=== PATIENT | male | born 1940 | race Caucasian/White ===

== ENCOUNTER 2019-03-22 09:24 | Inpatient (IN) ==
[2019-03-18 14:05] LABS: Prothrombin Time 12.8 sec (11.9-14.5)
[2019-03-18 14:09] LABS: Basophils # (Auto) 0 K/mcL (0.0-0.3); Basophils % (Auto) 0.4 % (0.0-2.0); Eosinophils # (Auto) 0.1 K/mcL (0.0-0.7); Eosinophils % (Auto) 1.1 % (0.0-7.0); Granulocytes % (Auto) 72.4 % (38.0-78.0); Hematocrit 44.8 % (41.0-55.0); Hemoglobin 15.1 g/dL (13.5-16.5); Mean Cell Volume 89.5 fL (80.0-100.0); Mean Corpuscular HGB Conc 33.8 g/dL (31.0-36.0); Mean Platelet Volume 7.5 fL (7.4-10.4); Monocytes # (Auto) 0.4 K/mcL (0.1-0.9); Monocytes % (Auto) 7.1 % (1.0-12.0); Platelet Count 222 K/mcL (140-440); RBC 5.01 M/mcL (4.50-5.90); Red Cell Distribution Width 13.3 % (11.5-14.5); WBC 5.5 K/mcL (4.5-11.0)
[2019-03-18 16:42] LABS: Blood Urea Nitrogen 24 mg/dl (8-23); Calcium 9.2 mg/dl (8.6-10.4); Carbon Dioxide 24 mmol/L (22-30); Chloride 103 mmol/L (96-108); Glomerular Filtration Rate 64; Glucose 92 mg/dL (70-105)
[~2019-03-22 09:24] MED LIST: 0.9 % SODIUM CHLORIDE 9 ML, KETOROLAC 30 MG, ROPIVACAINE HCL/PF 49.5 ML, EPINEPHrine 0.... IJ SCH; ACETAMINOPHEN 500 MG TABLET PO SCH; CELECOXIB 200 MG CAPSULE PO SCH; IPRATROPIUM/ALBUTEROL 3 ML AMPUL.NEB NEB PRN; PREGABALIN 75 MG CAPSULE PO SCH; SCOPOLAMINE 1 PATCH PATCH TOPICAL PRN; ceFAZolin 2 GM in DEXTROSE 5% IN WATER 50 ML IV SCH; oxyCODONE 10 MG TAB.ER.12H PO SCH
[2019-03-22 11:55] LABS: Appearance,Urine CLEAR; Bilirubin,Urine NEG (NEG); Color,Urine YELLOW; Glucose,Urine (UA) NEGATIVE (NEG); Ketones,Urine NEG (NEG); Leukocyte Esterase,Urine NEG /uL (NEG); Nitrate,Urine NEG (NEG); Protein,Urine NEG (NEG); Specific Gravity,Urine 1.018 (1.000-1.035); Urine Blood NEG mg/dL (<0.03); Urobilinogen,Urine NEG (NEG)
[2019-03-22] MEDS ORDERED: GLYCOPYRROLATE 0.2 MG/ML VIAL IV ONE (13:15)
[2019-03-22] MEDS ORDERED: fentaNYL 100 MCG/2 ML VIAL IV ONE (13:15)
[2019-03-22] MEDS ORDERED: ONDANSETRON 4 MG/2 ML VIAL IV ONE (13:15)
[2019-03-22] MEDS ORDERED: PROPOFOL 200 MG/20 ML VIAL IV ONE (13:15)
[2019-03-22] MEDS ORDERED: DEXAMETHASONE 10 MG/ML VIAL IV ONE (13:15)
[2019-03-22] MEDS ORDERED: TRANEXAMIC ACID 1,000 MG/10 ML VIAL IV ONE ×2 (13:15→14:51)
[2019-03-22] MEDS ORDERED: KETAMINE 100 MG/ML ML IV ONE (13:15)
[2019-03-22] MEDS ORDERED: ROPIVACAINE HCL/PF 20 ML VIAL IJ ONE (13:15)
[2019-03-22] MEDS ORDERED: LIDOCAINE HCL/PF 100 MG/5 ML SYRINGE IV ONE (13:15)
[2019-03-22] MEDS ORDERED: GENTAMICIN SULFATE 800 MG/20 ML VIAL IR ONE (13:46)
[2019-03-22] MEDS ORDERED: ePHEDrine 50 MG/ML AMPUL IV PRN (14:16)
[2019-03-22] MEDS ORDERED: METOPROLOL TARTRATE 5 MG/5 ML VIAL IV PRN (14:16)
[2019-03-22] MEDS ORDERED: METHOCARBAMOL 1,000 MG/10 ML VIAL IV PRN (14:16)
[2019-03-22] MEDS ORDERED: NALOXONE HCL 0.4 MG/ML VIAL IV PRN (14:16)
[2019-03-22] MEDS ORDERED: MEPERIDINE 25 MG/ML SYRINGE IV PRN (14:16)
[2019-03-22] MEDS ORDERED: IPRATROPIUM/ALBUTEROL 3 ML AMPUL.NEB NEB PRN (14:16)
[2019-03-22] MEDS ORDERED: ONDANSETRON 4 MG/2 ML VIAL IV PRN ×2 (14:16→14:51)
[2019-03-22] MEDS ORDERED: PROMETHAZINE 25 MG/ML VIAL IV PRN (14:16)
[2019-03-22] MEDS ORDERED: ATROPINE SULFATE 0.4 MG/ML VIAL IV PRN (14:16)
[2019-03-22] MEDS ORDERED: diphenhydrAMINE 50 MG/ML VIAL IV PRN (14:16)
[2019-03-22] MEDS ORDERED: FLUMAZENIL 0.1 MG/ML ML IV PRN (14:16)
[2019-03-22] MEDS ORDERED: fentaNYL 100 MCG/2 ML VIAL IV PRN (14:16)
[2019-03-22] MEDS ORDERED: HALOPERIDOL LACTATE 5 MG/ML VIAL IV ONE (14:21)
[2019-03-22] MEDS ORDERED: POLYETHYLENE GLYCOL 3350 17 GM PACKET PO PRN (14:51)
[2019-03-22] MEDS ORDERED: MAGNESIUM HYDROXIDE 30 ML ORAL.SUSP PO PRN (14:51)
[2019-03-22] MEDS ORDERED: BISACODYL 10 MG SUPP.RECT PR PRN (14:51)
[2019-03-22] MEDS ORDERED: BENZOCAINE/MENTHOL 1 LOZENGE PO PRN (14:51)
[2019-03-22] MEDS ORDERED: ACETAMINOPHEN 325 MG TABLET PO PRN (14:51)
[2019-03-22] MEDS ORDERED: TEMAZEPAM 15 MG CAPSULE PO PRN (14:51)
[2019-03-22] MEDS ORDERED: FLEETS ADULT ENEMA PR PRN (14:51)
[2019-03-22] MEDS ORDERED: HYDROmorphone 2 MG/ML VIAL IV PRN (14:51)
[2019-03-22] MEDS ORDERED: CYCLOBENZAPRINE 10 MG TABLET PO PRN (14:57)
[2019-03-22] MEDS ORDERED: HALOPERIDOL LACTATE 5 MG/ML VIAL ONE (14:57)
--- NOTE | 2019-03-22 14:58 | Brief Operative Note ---
Date of procedure: 03/22/19 Pre-op diagnosis: Right knee djd Post-op diagnosis: same Procedure: Right tka with ;jaydon Grafts/Implants: Yes Anesthesia: DARSHANA Surgeon: Beltran Caba Owner Manager: Deuce Fontanez Estimated blood loss (cc): 100 Tourniquet Time (Minutes): 45 Specimens Removed/Pathology: none sent Condition: stable Disposition: PACU
--- NOTE | 2019-03-22 15:27 | Operative Note ---
DATE OF OPERATION: 03/22/2019 PREOPERATIVE DIAGNOSIS: Right knee degenerative arthritis, severe. POSTOPERATIVE DIAGNOSIS: Right knee degenerative arthritis, severe. PROCEDURE: Right total knee arthroplasty using the Russ robot. SURGEON: Beltran Caba M.D. PRISON PSYCHIATRIST: Deuce Fontanez PA-C. The PA's assistance was required for the safe and efficient completion of the entire case. This provider's expertise and technical skill were required throughout the case. The PA assisted with preoperative coordination, intraoperative retraction, wound closure, dressing and splint application, as well as postoperative documentation and care coordination. ANESTHESIA: General LMA anesthesia. COMPLICATIONS: None. TOTAL TOURNIQUET TIME: 45 minutes at 250 pounds of pressure. ESTIMATED BLOOD LOSS: About 100 mL. IMPLANTS: Per nurse's note. These were cemented Josesito components, a 9 mm poly insert with deep dish with a 36 mm patellar button. DESCRIPTION OF PROCEDURE: The patient was brought to the operating room, placed supine on the operating table, and put to sleep with general LMA anesthesia. Once asleep, the patient had the right leg sterilely prepped and draped in the usual sterile fashion. Once this was done and time out performed by consent form, x-rays and initials, we proceeded with the case. We then placed Ioban over the skin after being sterilely prepped and draped. We made a midline incision and a midvastus approach after inflating the tourniquet to 250 pounds of pressure. We exposed the joint, showing severe arthritis of the right knee. We were able to place the pins above and below the knee and then register the center of hip rotation. We registered thirty points on the femur, thirty points on the tibia. Intraarticular points were registered, and we balanced the knee at 15 degrees and 90 degrees, both medial and lateral sides. Once perfectly balanced in both planes, we then brought in the robot and made the bony cuts. Once these were made, we removed osteophytes and bony fragments, removed the remnants of the meniscus, preserving the posterior cruciate ligament. Once done, we then trialed the components, setting rotation as preoperatively planned of the tibial baseplate. We trialed a 9 and 10 poly insert. The 10 mm gave a degree flexion contracture. With this, we went with a 9 mm that was 1 mm contracture, removing any additional spurs posteriorly. We irrigated thoroughly and then prepared the patella, measuring 25 mm in total thickness. This was cut to 15 mm in bony thickness and then resurfaced with a 36 mm patellar button. A small chamfer cut was made laterally and osteophytes were removed medially. We irrigated thoroughly and then opened the components, prepared the bony surface and injected the soft tissues with the post-inject formula. We pulse lavaged the tibia using the CarboJet as well to remove any moisture and then placed cement into the bone and on the implant. Tibial baseplate was set into place as preoperatively punched into place and aligned. This covered perfectly. We irrigated thoroughly and then placed the femoral component, preparing the bone with pulse lavage and CarboJet. Once completely dry, the bone cement was impregnated into the bone and the implant placed. We then placed a 9 mm trial and placed the knee in extension, prepared the patella and cemented into place a patellar poly component. We irrigated thoroughly. We kept the knee at 45 degrees until all cement was dry. At this point, we then placed the final implant as we liked the alignment and tension of the ligaments with a size 9, and this is what was preoperatively planned and measured. Once done, we were able to then implant a size 9 mm deep-dished implant tibial baseplate, removed any excess bone and then injected the soft tissues with a post-inject formula anteriorly. We closed the midvastus approach with #1 Stratafix x2 sutures. We closed the skin with Stratafix and adhesive closure. Sterile bandage was applied. Tourniquet deflated at approximately 45 minutes. Blood loss about 100 mL. RBDolores:[email or web address] Job ID: [id number] Doc ID: [id number] Beltran Caba MD
--- NOTE | 2019-03-22 15:42 | XRay Report ---
HISTORY: Postop right knee prosthesis insertion. FINDINGS: there is well-positioned right total knee prosthesis. No fracture is present. There is a joint effusion. There are no abnormal soft tissue calcifications around the joint. IMPRESSION: Well-positioned right knee prosthesis Interpreted and Authenticated by: Marcin Gurrola 03/22/19
[2019-03-22] MEDS: LACTATED RINGERS 1,000 ML IV SCH (15:53)
[2019-03-22] MEDS: KETOROLAC 15 MG/ML VIAL IV SCH ×2 (18:44→23:31)
[2019-03-22] MEDS: DOCUSATE SODIUM 100 MG CAPSULE PO SCH (20:12)
[2019-03-22] MEDS: ceFAZolin 1 GM VIAL IV SCH (20:12)
[2019-03-22] MEDS: TOPIRAMATE 25 MG TABLET PO SCH (20:12)
[2019-03-22] MEDS: 0.9 % SODIUM CHLORIDE 10 ML SYRINGE IV SCH (20:13)
[2019-03-22] MEDS: ASPIRIN 325 MG ENTERIC COATED TABLET PO SCH (20:13)
[2019-03-22] MEDS ORDERED: SENNOSIDES 1 TABLET PO SCH (21:00)
[2019-03-22] MEDS ORDERED: TERAZOSIN 1 MG CAPSULE PO SCH (21:00)
[2019-03-22] MEDS: HYDROcodone/APAP 10/325MG TABLET PO PRN (22:11)
[2019-03-23] MEDS: LACTATED RINGERS 1,000 ML IV SCH (00:56)
[2019-03-23] MEDS: 0.9 % SODIUM CHLORIDE 10 ML SYRINGE IV SCH (05:06)
[2019-03-23] MEDS: KETOROLAC 15 MG/ML VIAL IV SCH (05:06)
[2019-03-23] MEDS: ceFAZolin 1 GM VIAL IV SCH (05:07)
--- NOTE | 2019-03-23 07:56 | Orthopedic Progress Note ---
Subjective Patient information: Note initiated : 03/23/19 at 7:55 am Service Date, if different from initiated Date: [] Patient: Raman Salcido 78 y/o M admitted on 03/22/19 for Right Total Knee Arthroplasty. Chief Complaint: [Pt is stable this morning on post operative day 1 without any significant concerns or complaints. Patients vital signs have remained stable. Patients dressing is dry and is grossly intact from a neurovascular and motor standpoint. Patients 10 point ROS is otherwise negative. ] Objective Vital signs: Vital Signs Temp Pulse Resp BP Pulse Ox 03/23/19 03:56 18 03/22/19 23:31 98.3 F 82 20 100/60 93 03/22/19 22:00 94 03/22/19 19:23 98.2 F 83 20 137/72 93 03/22/19 18:54 94 03/22/19 17:50 99.1 F H 87 18 126/60 94 03/22/19 16:45 76 18 124/71 94 03/22/19 16:20 89 18 128/76 89 L 03/22/19 16:05 80 18 132/72 94 03/22/19 15:50 97.9 F 82 18 135/80 94 03/22/19 15:40 97.3 F 76 13 138/64 92 03/22/19 15:25 97.0 F 76 12 143/77 98 03/22/19 15:10 97.0 F 73 10 L 137/71 100 03/22/19 15:05 76 12 138/70 100 03/22/19 15:00 83 11 L 132/63 99 03/22/19 14:56 97.5 F 99 H 19 134/70 99 03/22/19 09:54 98.4 F 63 18 133/72 98 Intake and Output 03/22/19 03/23/19 03/23/19 21:59 05:59 13:59 Intake Total 3420 1092 Output Total 950 Balance 2470 1092 Intake: IV 612 Lactated Ringers 1,000 ml @ 100 612 mls/hr IV .Q10H [facility] Rx#: [id number] Oral 1520 480 IV - Manual Only 1900 Output: Urine Catheter Amount 900 Estimated Blood Loss 50 Other: Meal Dinner Percent of Meal Consumed 100% Feeding Ability Independent Urine Appearance Clear Urine Color Dark Yellow # Voids 1 Weight 173 lb 14.4 oz Intake & Output: Intake & Output 03/22/19 03/23/19 03/23/19 21:59 05:59 13:59 Intake Total 3420 1092 Output Total 950 Balance 2470 1092 Weight 173 lb 14.4 oz Intake: IV 612 Lactated Ringers 1,000 ml @ 100 612 mls/hr IV .Q10H [facility] Rx#: [id number] Oral 1520 480 IV - Manual Only 1900 Output: Urine Catheter Amount 900 Estimated Blood Loss 50 Other: Meal Dinner Percent of Meal Consumed 100% Feeding Ability Independent Urine Appearance Clear Urine Color Dark Yellow # Voids 1 Incision: Yes healing Weight bearing status: full Neurological exam IM: Yes motor sensory intact, Yes neurovascular intact Extremities exam IM: Yes Foot pink and warm, Yes neurovascular intact - Labs CBC & BMP: 03/18/19 09:52 03/18/19 09:52 Labs: Orthopedic Labs 03/18/19 09:52 PT 12.8 INR 1.0 APTT 25 03/23/19 03/18/19 06:03 09:52 Hgb 15.1 Hct Pending 44.8 Assessment and Plan (1) Hx of total knee arthroplasty The patient has been educated regarding dressing care, Physical Therapy recommendations, home exercises, restrictions, and follow up appointments. The patient has had all necessary DME prescribed. The patient has remained r elatively stable during their hospital course. Leave Dermabond patch intact until followup Status: Acute
--- NOTE | 2019-03-23 07:58 | Discharge Summary ---
Ortho Discharge - TKA - Patient Instructions Diet: Regular Diet Activity: activity as tolerated, weight bearing as tolerated Total Knee Protocol: For Total Knee: Start ROM PARMINDER with stationary bike or rocking chair. Work on gaining full extension of knee. Posterior dislocation precautions provided. Hip abductor strengthening and gait training instructions provided. Apply Cryocuff as instructed. Dressing Care: May shower in 2 days - Problem Maintenance (1) Hx of total knee arthroplasty Status: Acute - Follow Up Plan Follow Up Appointments: Deuce Fontanez PA-C [Physician Net Trainer] - 04/08/19 8:10 am Disposition: Home, Self-Care Prognosis: Good Rehab Potential: Good I certify that the patient requires SNF services: No Overall status at discharge: patient is progressing back to baseline - Orders For Discharge Prescriptions: Docusate Sodium [Colace] 100 mg PO BID #60 cap Transmission Status: Pending to [facility] Aspirin [Ecotrin] 325 mg PO BID #60 tab.ec Transmission Status: Pending to [facility] HYDROcodone/APAP 10/325MG [Victor 10-325Mg] 1 - 2 tab PO Q4HP PRN #75 tab PRN Reason: Pain Level 3-6 Prescription Printed
[2019-03-23] MEDS: HYDROcodone/APAP 10/325MG TABLET PO PRN (08:02)
[2019-03-23] MEDS: TOPIRAMATE 25 MG TABLET PO SCH (08:29)
[2019-03-23] MEDS: DOCUSATE SODIUM 100 MG CAPSULE PO SCH (08:31)
[2019-03-23] MEDS: ASPIRIN 325 MG ENTERIC COATED TABLET PO SCH (08:35)
[2019-03-23] MEDS ORDERED: Memantine Hcl [Namenda Xr] 28 MG PO SCH (09:00)
[2019-03-23] MEDS ORDERED: LISINOPRIL 10 MG TABLET PO SCH (09:00)
== END 2019-03-23 10:32 | disposition home or self-care (01) | DRG 470 ==
LOC: MEDSUR 09:24
PROVIDERS: ADMIT Orthopaedic Surgery; ATTEND Orthopaedic Surgery